=== PATIENT | female | born 1970 | race Caucasian/White ===

== ENCOUNTER 2024-05-01 06:40 | Day surgery (SDC) | payer OTHER ==
[~2024-05-01] VITALS: Ht 162.6 cm; Wt 78.6 kg
[~2024-05-01 06:40] MED LIST: K2 PLUS D3 TAB1 EACH PO; MIDAZOLAM HCL 5 MG/5 ML VIAL IV PRN; MIDAZOLAM HCL 5 MG/5 ML VIAL ONE; VITAMIN C1000 MG PO; fentaNYL citrate 100 MCG/2 ML VIAL IV PRN; fentaNYL citrate 100 MCG/2 ML VIAL ONE
[2024-05-01 06:59] VITALS: BP 121/77
[2024-05-01] MEDS ORDERED: LACTATED RINGER'S 1,000 ML IV SCH (07:00)
[2024-05-01] MEDS ORDERED: IBLOOD GLUCOSE TEST STRIP 1 EA TEST VI PRN (07:00)
[2024-05-01] MEDS ORDERED: LIDOCAINE HCL 1% 5 ML SDV INJ ONE (07:00)
[2024-05-01] MEDS ORDERED: VITAMIN D250 MCG PO (07:02)
[2024-05-01] MEDS ORDERED: VITAMIN C 500500 M1 PO (07:03)
--- NOTE | 2024-05-01 07:22 | NUR ---
PT NOT AVAILABLE FOR VISIT. PROVIDED PRAYER.
--- NOTE | 2024-05-01 07:25 | NUR ---
VISITED DURING SPIRITUAL CARE ROUNDS. PT SUPPORTED BY DRYWALL HANGER FRAMER IN ROOM, AMITTED SOME ANXIETY REGARDING ANESTHESIA. INTERNAL COMBUSTION ENGINEER PROVIDED SUPPORTIVE PRESENCE, HOSPITALITY, PRAYER, ANXIETY CONTAINMENT, FACILITATED INTERACTION WITH THERAPY ANIMAL. PT AND DRYWALL HANGER FRAMER EXPRESSED GRATITUDE.
--- NOTE | 2024-05-01 14:31 | OR ---
[facility] [address], [place] [address] Signed DATE OF OPERATION: 05/01/2024 SURGEON: Bravo Amaya MD PREOPERATIVE DIAGNOSIS: Colon screening. POSTOPERATIVE DIAGNOSIS: Normal colon to cecum. PROCEDURE: Total colonoscopy to cecum. ANESTHESIA: Intravenous sedation fentanyl 100 mcg and Versed 5 mg. INDICATION: This 53-year-old white woman is a patient of Shell Perez MD. She is referred for screening colonoscopy. She has had no prior colonoscopy. She has no family history of colon cancer. Mother did have polyps. She is currently asymptomatic, having no bleeding, diarrhea or constipation. She is admitted to undergo screening colonoscopy, understands the risk of bleeding, infection, and perforation. FINDINGS: The prep was excellent. Complete colonoscopy was undertaken to the cecum with full intubation of the cecum. There was no evidence of polyps, diverticular formation, colitis, or cancer. DESCRIPTION OF PROCEDURE: The patient was brought to the endoscopy suite and placed in lateral decubitus position, given intravenous sedation to the point of slurred speech and nystagmus. Digital rectal examination was normal. An Olympus video colonoscope was passed in the rectum and manipulated throughout the colon, ultimately intubating the cecum itself. The ileocecal valve and appendiceal orifice were normal. The scope was withdrawn, examination throughout showed no sign of abnormality, specifically no polyps, diverticular formation, colitis, or cancer. Retroflexed view of the rectum was normal. Scope was removed. The patient was taken to the recovery room in good condition. Electronically Signed By: BRAVO AMAYA MD 05/01/24 1431 PATIENT NAME: MELANIE RUEDA OPERATIVE REPORT DATE OF : 72 REPORT #: [id number] PHYSICIAN: BRAVO AMAYA MD PCP: SHELL PEREZ MD REPORT IS CONFIDENTIAL AND NOT TO BE RELEASED WITHOUT AUTHORIZATION [address], [place] [address] Signed CONCLUDING DIAGNOSIS: Normal colon. PLAN: Recommend repeat colonoscopy in 10 years, sooner if symptoms should develop. She will return to the ongoing care of Dr. Perez. MD RASHARD Adrian/MODL /[id number] cc: Dr. Perez Copies: ~ Electronically Signed By: BRAVO AMAYA MD 05/01/24 1431 PATIENT NAME: MELANIE RUEDA OPERATIVE REPORT DATE OF : 72 REPORT #: [id number] PHYSICIAN: BRAVO AMAYA MD PCP: CHRIS,SHELL MD REPORT IS CONFIDENTIAL AND NOT TO BE RELEASED WITHOUT AUTHORIZATION
== END 2024-05-01 08:42 | disposition home or self-care (01) ==
LOC: DS 06:40 → OPS 06:40 → DS 07:30 → OPS 08:42
PROVIDERS: ATTEND Surgery
PROC: 0DJD8ZZ Inspection of Lower Intestinal Tract, Via Natural or Artificial Opening Endoscopic (ICD-10-PCS; principal; 2024-05-01)
DX: Z12.11 Encounter for screening for malignant neoplasm of colon (principal); Z83.719 Family history of colon polyps, unspecified; Z78.0 Asymptomatic menopausal state
CPT/HCPCS: 99153; G0500; J2250; J3010; J7121